=== PATIENT | male | born 1965 | race African-American/Black ===

== ENCOUNTER 2017-02-02 18:29 | Emergency (ER) | payer OTHER ==
[~2017-02-02] VITALS: Ht 177.8 cm; Wt 85.3 kg
[2017-02-02 18:29] VITALS: BP 115/70
--- NOTE | 2017-02-02 18:30 | NUR ---
Presents self to ed c/o suicidal with plan to run on a traffic. Patient also reported hearing voices/ [place] "Come here with us" Patient is aa3. Appears in no acute distress. Respiration even and unlabored. Skin is warm to touch and non diaphoretic. Patient afebrile. VSs. Pending md jama
--- NOTE | 2017-02-02 18:48 | NUR ---
MD Trivedi at bedside for eval
--- NOTE | 2017-02-02 18:48 | NUR ---
cath lab nurse at for blood draw
--- NOTE | 2017-02-02 18:51 | NUR ---
urine sample sent to lab
[2017-02-02 18:53] LABS: BASOPHILS % (AUTO) 0.5 % (0.0-2.0); EOSINOPHILS # (AUTO) 0.1 /CMM (0.0-0.7); EOSINOPHILS % (AUTO) 1.5 % (0.0-6.0); HEMATOCRIT 43 % (39-51); HEMOGLOBIN 14.5 g/dL (13.5-17.5); LYMPHOCYTES # (AUTO) 2.6 /CMM (0.8-4.8); LYMPHOCYTES % (AUTO) 31.6 % (20.0-44.0); MEAN CORPUSCULAR HEMOGLOBIN 31 PG (26.0-33.0); MEAN CORPUSCULAR HGB CONC 34 g/dl (31.0-36.0); MEAN CORPUSCULAR VOLUME 93 fL (80-96); MONOCYTES # (AUTO) 0.6 /CMM (0.1-1.30); MONOCYTES % (AUTO) 7.4 % (2.0-12.0); PLATELET COUNT (AUTO) 83 /CMM (150-450); RDW COEFFICIENT OF VARIATION 13.2 (11.5-15.0); RED BLOOD CELL COUNT(AUTO) 4.67 MIL/uL (4.5-6.0); WHITE BLOOD COUNT (AUTO) 8.3 K/uL (4.3-11.0)
[2017-02-02 18:54] LABS: APPEARANCE,URINE Clear (CLEAR); BILIRUBIN,URINE SMALL (NEGATIVE); BLOOD, URINE Trace-lysed Ery/uL (NEGATIVE); COLOR,URINE Yellow (YELLOW); KETONES,URINE Trace (NEGATIVE); LEUKOCYTE ESTERASE ,URINE Negative (NEGATIVE); NITRITE, URINE Negative (NEGATIVE); PROTEIN,URINE Trace mg/dl (NEGATIVE); UGLUCOSE Negative (NEGATIVE)
[2017-02-02 19:04] LABS: PHENCYCLIDINE SCREEN,URINE NEGATIVE (NEGATIVE)
[2017-02-02 19:08] LABS: ADD URINE CULTURE NO; BACTERIA,URINE Rare /HPF (None Seen); RBC,URINE 0-2 /HPF (0-2); WBC,URINE 0-2 /HPF (0-3)
[2017-02-02 19:09] LABS: SQUAMOUS EPITHELIAL CELL,UR Few /HPF (None Seen)
[2017-02-02 19:09] LABS: ACETAMINOPHEN 0 ug/ml (10-30); ALANINE AMINOTRANSFERASE 25 U/L (12-78); ALBUMIN 3.6 g/dL (3.4-5.0); ALCOHOL, BLOOD < 3 mg/dL (0-0); ALKALINE PHOSPHATASE 60 U/L (46-116); ASPARTATE AMINOTRANSFERASE 19 U/L (15-37); BILIRUBIN,DIRECT 0.1 mg/dL (0.0-0.2); BILIRUBIN,TOTAL 0.5 mg/dL (0.2-1.0); CALCIUM, SERUM 8.5 mg/dL (8.5-10.1); CARBON DIOXIDE 28 mmol/L (21-32); CHLORIDE 107 mmol/L (98-107); CREATININE 1.5 mg/dL (0.6-1.3); GFR 60 mL/min (>60); GLUCOSE 105 mg/dL (74-106); POTASSIUM 3.8 mmol/L (3.5-5.1); SALICYLATE 6.2 mg/dL (2.8-20.0); SODIUM SERUM 141 mmol/L (136-145); TOTAL PROTEIN, SERUM 6.8 g/dL (6.4-8.2); UREA NITROGEN, BLOOD 17 mg/dL (7-18)
--- NOTE | 2017-02-02 19:09 | NUR ---
Report given to RIGO Kenyon for lulu
[2017-02-02 19:10] LABS: CANNABINOID, URINE POSITIVE (NEGATIVE)
--- NOTE | 2017-02-02 19:14 | NUR ---
CALLED [facility] FOR [facility] ETA 1 HOUR
--- NOTE | 2017-02-02 19:18 | NUR ---
ASSUMED CARE OF PATIENT.
--- NOTE | 2017-02-02 20:29 | NUR ---
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
--- NOTE | 2017-02-02 20:41 | NUR ---
PT ELOPED AFTER RECEIVING PSYCH EVALUATION BY MARTHA/RN CRISIS TEAM AND AFTER RECEIVING RESOURCES. Ambulatory with a steady gait laughing and stating "i burned my breaches". Per report from Martha/rn crisis team "he just left AMA from [facility]. Dr. Trivedi made aware.
== END 2017-02-02 20:45 | disposition left against medical advice (07) ==
LOC: ER 18:33
DX: F32.9 Major depressive disorder, single episode, unspecified (principal); N28.9 Disorder of kidney and ureter, unspecified; F12.10 Cannabis abuse, uncomplicated; F31.9 Bipolar disorder, unspecified; F20.9 Schizophrenia, unspecified
CPT/HCPCS: 36415; 73030; 80048; 80076; 80305; 80329; 81001; 85025; 99285; A4606; G0480 ×2; Z7610; 81000-TC; G6039-TC